=== PATIENT | female | born 1980 | race Caucasian/White ===

== ENCOUNTER 2020-01-25 15:02 | Emergency (ER) | payer OTHER, SELFPAY ==
--- NOTE | ~2020-01-25 | CT_ITS ---
EXAMINATION: CT abdomen pelvis w con INDICATION: Right lower quadrant pain and constipation TECHNIQUE: Computed tomographic images of the abdomen and pelvis were obtained after the administrati on of 100 cc of Omnipaque 350 intravenous contrast. The dose-length product (DLP) was 435.15 mGy-cm. Automated exposure control and iterative reconstruction technique were employed. COMPARISON: None available FINDINGS: The lung bases are clear. The heart size is normal. The liver, spleen, pancreas, gallbladde r, and adrenal glands are normal. The kidneys are unremarkable. No pathologically enlarged abdominal or pelvic lymph nodes are identified. There is no free intraperitoneal gas or evidence of bowel obstr uction. The appendix is normal. A moderate volume of colonic stool is present. There is mild thickeni ng of the bladder wall. IMPRESSION: 1. Mild bladder wall thickening which could reflect cystitis. 2. Constipation. Reviewed, dictated and finalized at location A.
[2020-01-25 15:20] VITALS: BP 143/85; PULSE 87; RESP 18; TEMP 36.3; O2SAT 98
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
[2020-01-25] MEDS: SODIUM CHLORIDE 0.9% IV 1,000 ML 999 ML IV CONT (15:44)
[2020-01-25] MEDS: ONDANSETRON INJ 4 MG/2 ML VIAL IV PUSH (15:45)
[2020-01-25] MEDS: HYDROMORPHONE HCL 2 MG/ML VIAL 0.5 MG IV PUSH (15:45)
[2020-01-25 15:57] LABS: Basophils Absolute Auto 0.06 K/mm3 (0.00-0.10); Basophils Percent Auto 0.9 % (0.0-1.0); Eosinophils Absolute Auto 0.18 K/mm3 (0.02-0.50); Eosinophils Percent Auto 2.7 % (1.0-6.0); Hematocrit 38.8 % (35.0-49.0); Hemoglobin 12.7 g/dL (12.0-15.0); Immature Granulocyte Absolute 0.05 K/mm3 (0.00-0.00); Immature Granulocyte Percent A 0.7 % (0.0-0.0); Lymphocytes Absolute Auto 1.56 K/mm3 (1.10-4.50); Lymphocytes Percent Auto 23.1 % (18.0-42.0); Mean Corpuscular HGB Conc 32.7 g/dL (32.0-36.0); Mean Corpuscular Hemoglobin 30.5 pg (27.0-31.0); Mean Platelet Volume 9.4 fl (9.2-11.8); Monocytes Absolute Auto 0.79 K/mm3 (0.10-0.90); Monocytes Percent Auto 11.7 % (2.0-11.0); Neutrophils Absolute Auto 4.1 K/mm3 (1.7-7.2); Neutrophils Percent Auto 60.9 % (50.0-70.0); Platelet Count Result 273 K/mm3 (150-420); Red Blood Count 4.17 M/mm3 (4.20-5.40); Red Cell Distribution Width 13.5 % (11.6-14.4); White Blood Count 6.8 K/mm3 (4.8-10.8)
[2020-01-25 16:00] LABS: Add Urine Microscopic? YES; Appearance Urine Cloudy (Clear); Bilirubin Urine Negative (Negative); Blood Urine Negative (Negative); Color Urine Yellow (Yellow); Glucose Urine UA Negative (Negative); Ketones Urine Negative (Negative); Leukocyte Esterase Ur 1+ (Negative); Nitrate Urine Negative (Negative); Protein Urine Negative (Negative); pH Urine 7.5 (5.0-8.0)
[2020-01-25 16:06] LABS: Amphetamine Screen Urine Positive (Negative); Barbiturate Screen Urine Negative (Negative); Benzodiazepines Screen Urine Negative (Negative); Cannabinoid Screen Urine Negative (Negative); Cocaine Screen Urine Negative (Negative); Methadone Screen Urine Negative (Negative); Opiate Screen Urine Negative (Negative); Phencyclidine Screen Urine Negative (Negative)
[2020-01-25 16:07] LABS: Amorphous Sediment Urine Moderate; Bacteria Urine 2+ /hpf; RBC Urine 0-2 /hpf (0-2); Squamous Epithelial Cell Urine Few /hpf (Few); WBC Urine 16-20 /hpf (0-3)
[2020-01-25 16:09] LABS: Pregnancy On Board Control Positive; Urine Pregnancy Test Negative
[2020-01-25 16:11] LABS: Partial Thromboplastin Time 30.9 SEC (22.3-31.6); Prothrombin Time 10.2 Seconds (9.64-11.0)
[2020-01-25 16:13] LABS: Alanine Aminotransferase 27 U/L (14-59); Albumin Level 3.9 g/dL (3.4-5.0); Alkaline Phosphatase 64 U/L (46-116); Anion Gap 9.2 mmol/L (7-16); Aspartate Amino Transferase 19 U/L (15-37); Bilirubin,Total 0.3 mg/dL (0.00-1.00); Blood Urea Nitrogen 13 mg/dL (7-18); Calcium 8.9 mg/dL (8.5-10.1); Carbon Dioxide 35 mmol/L (21-32); Chloride 100 mmol/L (98-108); Estimated CRCL calculation 59 ml/min; Estimated Glomerular Filt Rate > 60; Glucose 75 mg/dL (70-99); Lipase 102 U/L (73-393); Osmolality Calculated 291 mOsm/kg (285-295); Potassium 3.2 mmol/L (3.5-5.1); Sodium 141 mmol/L (136-145); Total Protein 7.8 g/dL (6.4-8.2)
[2020-01-25 16:15] LABS: Lactic Acid Reflex 0.9 mmol/L (0.4-2.0)
[2020-01-25] MEDS: CIPROFLOXACIN 500 MG TAB PO (17:36)
[2020-01-25 17:38] VITALS: BP 132/70; PULSE 72; RESP 16; O2SAT 99
--- NOTE | 2020-01-28 11:17 | PC.NURSE ---
DR WALDRON OFFICE NOTIFIED OF POSITIVE GONORRHEA, OFFICE WILL NOTIFY PATIENT PER JOAQUIN.
== END 2020-01-25 17:38 | disposition home or self-care (01) ==
PROVIDERS: Emergency Provider Emergency Medicine; PCP Family Medicine
DX: N39.0 Urinary tract infection, site not specified (principal); K59.00 Constipation, unspecified
CPT/HCPCS: 36415; 74177; 80053; 80307; 81001; 81025; 83605; 83690; 85025; 85610; 85730; 87491; 87591; 96374; 96375; 99283; 99284; A9270; J1170; J2405; J7030; Q9965

== ENCOUNTER 2020-03-09 07:17 | Emergency (ER) | payer OTHER, SELFPAY ==
[2020-03-09 07:30] VITALS: BP 117/88; PULSE 96; RESP 20; TEMP 36.8; O2SAT 98
--- NOTE | 2020-03-09 07:59 | ED.SKABFB ---
HPI - Skin/Abscess/Foreign Bdy General Chief complaint: Skin/Abscess/Foreign Body Stated complaint: left side of face swollen Source: patient Mode of arrival: ambulatory Limitations: no limitations History of Present Illness HPI narrative: 39-year-old has had a painful lesion forehead this started 1 week ago. It started draining last night which was associated with resolution of her pain. She rated the pain is 6 or 7 out 10. Two days ago she had nausea vomiting which has since resolved. She denies fevers chills headaches body aches. She is had a draining sore the left axilla this started 2 weeks ago. The drainage stopped yesterday before she has pain which has since resolved. When she denies sores elsewhere. He is unaware of any previous skin infections or MRSA. She's wondering if this could be a spider bite. Related Data Home Medications Medication Instructions Recorded Confirmed levothyroxine 150 mcg PO DAILY 10/19/19 03/09/20 Allergies Allergy/AdvReac Type Severity Reaction Status Date / Time acetaminophen [From Tylenol] Allergy Unknown Verified 03/09/20 07:40 codeine Allergy Unknown Verified 03/09/20 07:40 Review of Systems Constitutional: Constitutional: Reports no additional constitutional complaints Eyes: Comments: Left eyelid swelling last 2 days, improved today. No blurred vision ENT: Reports system reviewed and no additional complaints, except as documented Gastrointestinal: Gastrointestinal: Reports no additional gastrointestinal complaints Integumentary/Breasts: Skin/Breast: Reports system reviewed and no additional complaints, except as docu PMFSH Past Medical History Medical History Anxiety Depression Hypothyroidism Surgical History Surgical History H/O tubal ligation Family History Family History Father , father of [place] at age 73 No problems noted. Social History Social History Smoking packs per day: 0.5 Smoking cigarettes per day: 10.0 Tobacco type: cigarettes Substance use type: does not use Exam Const: Other: healthy appearing patient. Afebrile. HENMT: Head: other Face and sinus: other ( 1 cm red and tender papule, the central 7mm ulcerated .) Eyes: Eyelids: other ( left upper eyelid is edematous without erythema or tenderness) Neck: Lymphatic: no lymphadenopathy noted Chest: Other: left axilla has a light pain slightly fluctuant, minimally tender papule measuring 2 by 1 cm. The upper left axilla has a 2 cm round light pink nontender macule Course Course Emergency Course: gentle compression was applied to the left forehead lesion resulting the expression purulence drainage. Culture was obtained Vital Signs Vital signs: Vital Signs Temperature 36.8 C 03/09/20 07:30 Pulse Rate 96 03/09/20 07:30 Respiratory Rate 20 03/09/20 07:30 Blood Pressure 117/88 03/09/20 07:30 Pulse Oximetry 98 03/09/20 07:30 Temperature 36.8 C 03/09/20 07:30 Pulse Rate 96 03/09/20 07:30 Respiratory Rate 20 03/09/20 07:30 Blood Pressure 117/88 03/09/20 07:30 Pulse Oximetry 98 03/09/20 07:30 MDM - Skin/Abscess/Foreign Bdy MDM Narrative Medical decision making narrative: Patient had an abscesses of the left axilla which drain is now healing. She appears to inoculation her left forehead Differential Diagnosis Differential diagnosis: Likely abscess of skin or subcutaneous tissue Discharge Plan Discharge Clinical Impression: Abscess of skin or subcutaneous tissue Qualifiers: Site of cutaneous abscess: face Qualified Code(s): L02.01 - Cutaneous abscess of face Patient Disposition: Home, Self-Care Condition: Stable Instructions: Antibiotic Form, Abscess (ED) Additional Instructions: Keep the
== END 2020-03-09 08:21 | disposition home or self-care (01) ==
PROVIDERS: Emergency Provider Family Medicine; PCP Family Medicine
DX: F41.9 Anxiety disorder, unspecified (principal); F32.9 Major depressive disorder, single episode, unspecified; E03.9 Hypothyroidism, unspecified; L02.01 Cutaneous abscess of face; L02.412 Cutaneous abscess of left axilla
CPT/HCPCS: 87070; 87077; 87186; 87205; 99283; A9270

== ENCOUNTER 2020-03-17 16:09 | Emergency (ER) | payer OTHER, SELFPAY ==
--- NOTE | 2020-03-17 16:20 | ED.EXTPRO ---
HPI - Extremity Problem General Chief complaint: Extremity Problem,Nontraumatic Stated complaint: r ankle swelling Time Seen by Provider: 03/17/20 16:20 Source: patient and RN notes reviewed Mode of arrival: ambulatory Limitations: no limitations History of Present Illness HPI Narrative: 39-year-old female states that she has been having pain in her right calf. Seems to be closer to her Achilles tendon. She says it only hurts when she walks on it. She has no pain at rest. She denies any fever chills. She denies any redness. She thinks it might be swollen. Complaint: extremity pain and extremity swelling Onset (ago): day(s) (3) Pain Consistency: intermittent Location: right and lower extremity Severity scale (1-10): 9 Quality: aching (Only when she walks) Radiation: none Relieving factors: rest Exacerbating factors: weight bearing Associated symptoms: denies other symptoms Related Data Home Medications Medication Instructions Recorded Confirmed levothyroxine 150 mcg PO DAILY 10/19/19 03/17/20 Allergies Allergy/AdvReac Type Severity Reaction Status Date / Time codeine Allergy Unknown Verified 03/09/20 07:40 Review of Systems Review of Systems: All systems reviewed & are unremarkable except as noted in HPI and below Constitutional: Constitutional: Reports no additional constitutional complaints Eyes: Eyes: Reports no additional eye complaints Cardiovascular: Cardiovascular: Reports no additional cardiovascular complaints Respiratory: Respiratory: Reports no additional respiratory complaints Gastrointestinal: Gastrointestinal: Reports no additional gastrointestinal complaints Genitourinary: Genitourinary: Reports no additional female genitourinary complaints Musculoskeletal: Musculoskeletal: Reports as per HPI Neurologic: Reports system reviewed and no additional complaints, except as documented Psychiatric: Psychiatric: Reports no additional psychiatric complaints Hematologic/Lymphatic: Hematologic/Lymphatic: Reports no additional hematologic/lymphatic complaints COUNTS INCLUDE 234 BEDS AT THE [facility] Past Medical History Medical History Anxiety Depression Hypothyroidism Surgical History Surgical History H/O tubal ligation Family History Family History Father , father of [place] at age 73 No problems noted. Social History Social History (Updated 03/17/20 @ 16:25 by Flash Ying MD) Smoking packs per day: 1 Smoking cigarettes per day: 20.0 Tobacco type: cigarettes Substance use type: does not use Exam Const: General: healthy appearing, no acute distress and alert Nutritional Appearance: well nourished Orientation/consciousness: patient oriented x3 Other: Female nurse in room during examination. HENMT: Head: normal to inspection Ears: external ears normal Face and sinus: normal facial exam Mouth: Yes lip normal and Yes moist mucous membranes Eyes: Conjunctivae: conjunctivae normal Pupils: Equal, round and reactive pupils present EOM: EOMs intact bilaterally Neck: Neck: normal visual inspection Resp: Effort & Inspection: normal respiratory effort Auscultation: clear to auscultation bilaterally Cardio: Rate: regular rate Rhythm: regular rhythm GI: GI Palp: Yes Soft to palpation and No Tenderness to palpation present (GI) Auscultation: normal bowel sounds Back/Spine/Pelvis: Cervical Spine: cervical ROM normal Thoracic/Lumbar Spine: thoraco-lumbar ROM normal Skin: General skin exam: normal color Rashes: no rashes Neuro: General: patient oriented x3, moves all extremities and no focal motor deficits Speech: normal speech Gait exam (Neuro): Normal gait present Extrem: General: no pedal edema Right lower extremity: full ROM, lower leg Details: normal to inspection, tenderness Location: of the posterior calf (Mil
[2020-03-17 16:43] VITALS: BP 117/74; PULSE 73; RESP 16; TEMP 36.6; O2SAT 100
[2020-03-17 16:45] LABS: Basophils Absolute Auto 0.09 K/mm3 (0.00-0.10); Basophils Percent Auto 1.3 % (0.0-1.0); Eosinophils Absolute Auto 0.26 K/mm3 (0.02-0.50); Eosinophils Percent Auto 3.9 % (1.0-6.0); Hematocrit 36.7 % (35.0-49.0); Immature Granulocyte Absolute 0.04 K/mm3 (0.00-0.00); Immature Granulocyte Percent A 0.6 % (0.0-0.0); Lymphocytes Percent Auto 28.3 % (18.0-42.0); Mean Corpuscular HGB Conc 32.7 g/dL (32.0-36.0); Mean Corpuscular Hemoglobin 31.3 pg (27.0-31.0); Mean Corpuscular Volume 95.6 fL (78.0-102.0); Mean Platelet Volume 9.6 fl (9.2-11.8); Monocytes Absolute Auto 0.49 K/mm3 (0.10-0.90); Monocytes Percent Auto 7.3 % (2.0-11.0); Neutrophils Absolute Auto 3.9 K/mm3 (1.7-7.2); Neutrophils Percent Auto 58.6 % (50.0-70.0); Platelet Count Result 270 K/mm3 (150-420); Red Blood Count 3.84 M/mm3 (4.20-5.40); Red Cell Distribution Width 13.8 % (11.6-14.4); White Blood Count 6.7 K/mm3 (4.8-10.8)
[2020-03-17 16:56] LABS: Anion Gap 9.8 mmol/L (7-16); Blood Urea Nitrogen 10 mg/dL (7-18); Calcium 8.7 mg/dL (8.5-10.1); Carbon Dioxide 29 mmol/L (21-32); Chloride 102 mmol/L (98-108); Estimated Glomerular Filt Rate 49; Glucose 98 mg/dL (70-99); Osmolality Calculated 283 mOsm/kg (285-295); Potassium 3.8 mmol/L (3.5-5.1); Sodium 137 mmol/L (136-145)
[2020-03-17 17:02] LABS: D Dimer 0.19 mg/L (0.19-0.50)
[2020-03-17 17:19] VITALS: RESP 17
== END 2020-03-17 17:22 | disposition home or self-care (01) ==
PROVIDERS: Emergency Provider Emergency Medicine; PCP Family Medicine
DX: M79.18 Myalgia, other site (principal)
CPT/HCPCS: 36415; 80048; 85025; 85380; 99283

== ENCOUNTER 2020-03-31 14:22 | Emergency (ER) | payer OTHER, SELFPAY ==
[2020-03-31 14:30] VITALS: BP 104/67; PULSE 82; RESP 16; TEMP 36.4; O2SAT 99
[2020-03-31 15:17] LABS: Beta HCG Quantitative < 1.00 mIU/mL (0-6)
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
[2020-03-31 15:33] VITALS: RESP 16
== END 2020-03-31 15:35 | disposition home or self-care (01) ==
PROVIDERS: Emergency Provider Emergency Medicine; PCP Family Medicine
DX: Z00.00 Encounter for general adult medical examination without abnormal findings (principal)
CPT/HCPCS: 36415; 84702; 99281; 99283

== ENCOUNTER 2020-05-06 16:44 | Emergency (ER) | payer OTHER, SELFPAY ==
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
[2020-05-06 16:50] VITALS: BP 109/75; PULSE 81; RESP 16; TEMP 36.4; O2SAT 99
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
[2020-05-06] MEDS: MORPHINE SULFATE 2 MG/ML INJ IV PUSH ×2 (17:00→17:51)
[2020-05-06] MEDS: ONDANSETRON INJ 4 MG/2 ML VIAL IV PUSH (17:15)
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
[2020-05-06 18:43] LABS: Pregnancy On Board Control Positive; Urine Pregnancy Test Negative
[2020-05-06 19:14] VITALS: BP 100/79
== END 2020-05-06 19:15 | disposition home or self-care (01) ==
PROVIDERS: Emergency Provider Emergency Medicine
DX: S82.401A Unspecified fracture of shaft of right fibula, initial encounter for closed fracture (principal); Y04.0XXA Assault by unarmed brawl or fight, initial encounter
CPT/HCPCS: 29515; 73610; 73630; 81025; 96374; 96375; 96376; 99283; 99284; J2270; J2405

== ENCOUNTER 2020-09-14 12:51 | Emergency (ER) | payer OTHER, SELFPAY ==
--- NOTE | ~2020-09-14 | XR_ITS ---
XR knee RT 3V 09/14/2020 13:39 INDICATION: Right knee pain after fall PROCEDURE: 4 views right knee COMPARISON: No prior studies for comparison. FINDINGS: Fracture, dislocation or subluxation is not identified. The soft tissues appear within norm al limits. No foreign bodies are identified. IMPRESSION: 1: NO ACUTE BONE OR JOINT ABNORMALITY IDENTIFIED. 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
--- NOTE | ~2020-09-14 | XR_ITS ---
XR ankle RT min 3V 09/14/2020 13:38 Indication: Status post fall. Reinjured right ankle. Procedure: 4 views right ankle Comparison: 05/06/2020 Findings: There is a healing oblique distal fibular fracture with developing callus formation. There is widening of the medial ankle mortise, unchanged from prior study. Moderate diffuse soft tiss ue swelling. 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 Impression: 1: Healing oblique distal fibular fracture with developing callus formation. 2: Persistent unchanged widening of the medial ankle mortise, consistent with ligamentous injury. 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 2: Persistent unchanged widening of the medial ankle mortise, consistent with l igamentous injury.
[2020-09-14 13:05] VITALS: BP 103/67; PULSE 82; RESP 14; TEMP 36.4; O2SAT 100
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
[2020-09-14] MEDS: LIDOCAINE HCL 1% LOCAL INJ 20 ML VIAL (13:33)
[2020-09-14] MEDS: cefTRIAXone 1 GM VIAL IM (13:33)
[2020-09-14] MEDS: NEOMYCIN/POLYMYXIN/BACITRACIN OINTMENT 15 GM TUBE 1 APPLIC TOPICAL (13:40)
--- NOTE | 2020-09-14 13:46 | PC.NURSE ---
ABRASION TO RIGHT KNEE CLEANED, ROSALINO, DRESSED
[2020-09-14 14:34] VITALS: BP 99/56; PULSE 70; RESP 14; TEMP 36.6; O2SAT 100
== END 2020-09-14 14:36 | disposition home or self-care (01) ==
PROVIDERS: Emergency Provider Family Medicine; PCP Family Medicine
DX: M24.271 Disorder of ligament, right ankle (principal); S80.211A Abrasion, right knee, initial encounter; S82.891G Other fracture of right lower leg, subsequent encounter for closed fracture with delayed healing; W01.0XXA Fall on same level from slipping, tripping and stumbling without subsequent striking against object, initial encounter
CPT/HCPCS: 73562; 73610; 96372; 99283; 99284; A9270; J0696; L2112

== ENCOUNTER 2021-01-24 13:37 | Emergency (ER) | payer OTHER, SELFPAY ==
--- NOTE | ~2021-01-24 | XR_ITS ---
XR ankle RT min 3V DATE: 01/24/2021 14:44 INDICATION: Pain TECHNIQUE: 4 views COMPARISON: 09/14/2020 right ankle FINDINGS: There is medial and lateral ankle soft tissue swelling. There is old fracture deformity of the lateral malleolus. There is probable chronic old fracture deformity of the distal lateral tibial epiphyseal area, with r esultant chronic lateral subluxation and angulation deformity at the tibiotalar joint. IMPRESSION: Chronic fracture deformities of the lateral malleolus and distal lateral tibial epiphysea l area, with chronic lateral subluxation and angulation deformity at the tibiotalar joint Reviewed, dictated and finalized at location A. IMPRESSION: Chronic fracture deformities of the lateral malleolus and distal la teral tibial epiphyseal area, with chronic lateral subluxation and angulation d eformity at the tibiotalar joint
[2021-01-24 13:45] VITALS: BP 141/80; PULSE 83; RESP 20; O2SAT 97
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
[2021-01-24 15:32] VITALS: RESP 16
== END 2021-01-24 15:40 | disposition home or self-care (01) ==
PROVIDERS: Emergency Provider Emergency Medicine; PCP Family Medicine
DX: M25.571 Pain in right ankle and joints of right foot (principal); E03.9 Hypothyroidism, unspecified
CPT/HCPCS: 73610; 99282; 99283

== ENCOUNTER 2021-01-25 10:41 | Emergency (ER) | payer OTHER, SELFPAY ==
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
[2021-01-25 11:10] VITALS: BP 126/95; PULSE 72; RESP 20; TEMP 36.8; O2SAT 100
[2021-01-25] MEDS: MECLIZINE HCL 25 MG TABLET PO (11:40)
[2021-01-25 11:41] LABS: Basophils Absolute Auto 0.07 K/mm3 (0.00-0.10); Basophils Percent Auto 1.1 % (0.0-1.0); Eosinophils Absolute Auto 0.25 K/mm3 (0.02-0.50); Eosinophils Percent Auto 3.9 % (1.0-6.0); Hematocrit 40.8 % (35.0-49.0); Hemoglobin 13.1 g/dL (12.0-15.0); Immature Granulocyte Absolute 0.02 K/mm3 (0.00-0.00); Immature Granulocyte Percent A 0.3 % (0.0-0.0); Lymphocytes Absolute Auto 1.28 K/mm3 (1.10-4.50); Lymphocytes Percent Auto 19.8 % (18.0-42.0); Mean Corpuscular HGB Conc 32.1 g/dL (32.0-36.0); Mean Corpuscular Hemoglobin 29.9 pg (27.0-31.0); Mean Corpuscular Volume 93.2 fL (78.0-102.0); Mean Platelet Volume 9.6 fl (9.2-11.8); Monocytes Absolute Auto 0.56 K/mm3 (0.10-0.90); Monocytes Percent Auto 8.6 % (2.0-11.0); Neutrophils Absolute Auto 4.3 K/mm3 (1.7-7.2); Neutrophils Percent Auto 66.3 % (50.0-70.0); Platelet Count Result 214 K/mm3 (150-420); Red Blood Count 4.38 M/mm3 (4.20-5.40); Red Cell Distribution Width 13.2 % (11.6-14.4); White Blood Count 6.5 K/mm3 (4.8-10.8)
[2021-01-25 11:47] LABS: Add Urine Microscopic? YES; Appearance Urine Clear (Clear); Bilirubin Urine Negative (Negative); Blood Urine 3+ (Negative); Color Urine Yellow (Yellow); Glucose Urine UA Negative (Negative); Ketones Urine Negative (Negative); Leukocyte Esterase Ur 2+ LEU/UL (Negative); Nitrate Urine Negative (Negative); Protein Urine Negative (Negative); Urobilinogen Urine 0.2 mg/dL (0.2-1.0); pH Urine 6.5 (5.0-8.0)
[2021-01-25 11:52] LABS: Urine Pregnancy Test Negative
[2021-01-25 11:53] LABS: Pregnancy On Board Control Positive
[2021-01-25 11:55] LABS: Bacteria Urine 1+ /hpf; Squamous Epithelial Cell Urine Few /hpf (Few)
[2021-01-25 11:57] LABS: Alanine Aminotransferase 44 U/L (14-59); Anion Gap 6 mmol/L (8-16); Aspartate Amino Transferase 36 U/L (15-37); Bilirubin,Total 0.4 mg/dL (0.00-1.00); Blood Urea Nitrogen 11 mg/dL (7-18); Calcium 8.8 mg/dL (8.5-10.1); Carbon Dioxide 31 mmol/L (21-32); Chloride 101 mmol/L (98-108); Estimated Glomerular Filt Rate 45; Glucose 73 mg/dL (70-99); Osmolality Calculated 284 mOsm/kg (285-295); Potassium 3.7 mmol/L (3.5-5.1); Sodium 138 mmol/L (136-145); Total Protein 7.2 g/dL (6.4-8.2)
[2021-01-25 11:58] LABS: Albumin Level 3.6 g/dL (3.4-5.0); Alkaline Phosphatase 61 U/L (46-116)
[2021-01-25 12:03] LABS: CRP < 0.9 mg/dL (0.0-0.9)
[2021-01-25 12:15] VITALS: RESP 18
[2021-01-25 12:15] LABS: Amphetamine Screen Urine Positive (Negative); Barbiturate Screen Urine Negative (Negative); Benzodiazepines Screen Urine Negative (Negative); Cannabinoid Screen Urine Negative (Negative); Cocaine Screen Urine Negative (Negative); Methadone Screen Urine Negative (Negative); Opiate Screen Urine Negative (Negative); Phencyclidine Screen Urine Negative (Negative)
== END 2021-01-25 12:15 | disposition home or self-care (01) ==
PROVIDERS: Emergency Provider Emergency Medicine; PCP Family Medicine
DX: N39.0 Urinary tract infection, site not specified (principal)
CPT/HCPCS: 36415; 80053; 80307; 81001; 81025; 85025; 86140; 87086; 99283; A9270

== ENCOUNTER 2021-03-29 09:12 | Emergency (ER) | payer OTHER, SELFPAY ==
[2021-03-29 09:12] VITALS: BP 105/80; PULSE 70; RESP 20; TEMP 36.6; O2SAT 100
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
--- NOTE | 2021-03-29 09:21 | ECG_ITS ---
Measurements Intervals [place] Rate: 56 P: 58 IA: 164 QRS: 85 QRSD: 116 T: 71 QT: 419 QTc: 407 Interpretive Statements SINUS BRADYCARDIA INCOMPLETE RIGHT BUNDLE BRANCH BLOCK BORDERLINE ECG Electronically Signed On 03-29-2021 12:28:21 CDT by Lefty Boyd D.O.
[2021-03-29] MEDS: SODIUM CHLORIDE 0.9% IV 1,000 ML 999 ML IV CONT (09:34)
[2021-03-29] MEDS: ONDANSETRON INJ 4 MG/2 ML VIAL IV PUSH (09:35)
[2021-03-29 09:41] LABS: Basophils Absolute Auto 0.07 K/mm3 (0.00-0.10); Basophils Percent Auto 1.5 % (0.0-1.0); Eosinophils Absolute Auto 0.29 K/mm3 (0.02-0.50); Eosinophils Percent Auto 6.1 % (1.0-6.0); Hematocrit 34.2 % (35.0-49.0); Hemoglobin 10.9 g/dL (12.0-15.0); Immature Granulocyte Absolute 0.02 K/mm3 (0.00-0.00); Immature Granulocyte Percent A 0.4 % (0.0-0.0); Lymphocytes Absolute Auto 1.14 K/mm3 (1.10-4.50); Lymphocytes Percent Auto 23.9 % (18.0-42.0); Mean Corpuscular HGB Conc 31.9 g/dL (32.0-36.0); Mean Corpuscular Hemoglobin 30.4 pg (27.0-31.0); Mean Corpuscular Volume 95.3 fL (78.0-102.0); Mean Platelet Volume 9.6 fl (9.2-11.8); Monocytes Absolute Auto 0.55 K/mm3 (0.10-0.90); Monocytes Percent Auto 11.6 % (2.0-11.0); Neutrophils Absolute Auto 2.7 K/mm3 (1.7-7.2); Neutrophils Percent Auto 56.5 % (50.0-70.0); Platelet Count Result 242 K/mm3 (150-420); Red Blood Count 3.59 M/mm3 (4.20-5.40); Red Cell Distribution Width 14.1 % (11.6-14.4); White Blood Count 4.8 K/mm3 (4.8-10.8)
[2021-03-29 10:01] LABS: Lactic Acid Reflex 1.4 mmol/L (0.4-2.0)
[2021-03-29 10:03] LABS: Add Urine Microscopic? YES; Appearance Urine Cloudy (Clear); Bilirubin Urine Negative (Negative); Blood Urine 3+ (Negative); Color Urine Red (Yellow); Glucose Urine UA Negative (Negative); Ketones Urine Negative (Negative); Leukocyte Esterase Ur Negative LEU/UL (Negative); Nitrate Urine Negative (Negative); Protein Urine 1+ (Negative); Specific Grav Ur 1.025 (1.010-1.020); Urobilinogen Urine 0.2 mg/dL (0.2-1.0); pH Urine 5.5 (5.0-8.0)
[2021-03-29 10:07] LABS: Bacteria Urine Trace /hpf; RBC Urine >75 /hpf (0-2); Squamous Epithelial Cell Urine Rare /hpf (Few); WBC Urine None seen /hpf (0-3)
[2021-03-29 10:09] LABS: Amphetamine Screen Urine Positive (Negative); Barbiturate Screen Urine Negative (Negative); Benzodiazepines Screen Urine Negative (Negative); Cannabinoid Screen Urine Negative (Negative); Cocaine Screen Urine Negative (Negative); Methadone Screen Urine Negative (Negative); Opiate Screen Urine Negative (Negative); Phencyclidine Screen Urine Negative (Negative)
[2021-03-29 10:10] LABS: Alanine Aminotransferase 21 U/L (14-59); Albumin Level 3.1 g/dL (3.4-5.0); Alkaline Phosphatase 53 U/L (46-116); Anion Gap 10 mmol/L (8-16); Aspartate Amino Transferase 32 U/L (15-37); Bilirubin,Total 0.2 mg/dL (0.00-1.00); Blood Urea Nitrogen 8 mg/dL (7-18); Calcium 8.7 mg/dL (8.5-10.1); Carbon Dioxide 25 mmol/L (21-32); Chloride 105 mmol/L (98-108); Estimated Glomerular Filt Rate > 60; Glucose 100 mg/dL (70-99); Lipase 136 U/L (73-393); Osmolality Calculated 288 mOsm/kg (285-295); Potassium 3.7 mmol/L (3.5-5.1); Sodium 140 mmol/L (136-145); Total Protein 6.1 g/dL (6.4-8.2)
[2021-03-29 10:11] LABS: Thyroid Stimulating Hormone Reflex 80.47 u/IU/mL (0.36-3.74)
[2021-03-29 10:24] VITALS: BP 110/64; PULSE 67; RESP 20; TEMP 37.1; O2SAT 100
[2021-03-29 10:27] LABS: Pregnancy On Board Control Positive; Urine Pregnancy Test Negative
[2021-03-29 10:28] LABS: Free T4 Free Thyroxine Reflex 0.14 ng/dL (0.76-1.46)
== END 2021-03-29 10:33 | disposition home or self-care (01) ==
PROVIDERS: Emergency Provider Emergency Medicine
DX: K52.9 Noninfective gastroenteritis and colitis, unspecified (principal); E03.9 Hypothyroidism, unspecified
CPT/HCPCS: 36415; 80053; 80307; 81001; 81025; 83605; 83690; 84439; 84443; 85025; 93005; 96361; 96374; 99284; J2405; J7030

== ENCOUNTER 2022-03-18 08:05 | Emergency (ER) | payer OTHER, SELFPAY ==
--- NOTE | ~2022-03-18 | XR_ITS ---
EXAMINATION: XR knee LT 3V DATE: 03/18/2022 09:26 INDICATION: Left knee infrapatellar injury. TECHNIQUE: 3 views of left knee were obtained. COMPARISON: None. FINDINGS: Bone alignment is normal. No fracture. Joint spaces are well maintained. There is no knee j oint effusion. IMPRESSION: 1. No fracture or radiopaque foreign body. Reviewed, dictated and finalized at location A.
--- NOTE | ~2022-03-18 | CT_ITS ---
EXAMINATION: CT brain wo con DATE: 03/18/2022 09:15 INDICATION: Headache. TECHNIQUE: Computed tomography (CT) of the head was performed without intravenous contrast. The mA wa s adjusted according to patient size. Iterative reconstruction technique was employed. The dose-lengt h product was 605.33 mGy-cm. COMPARISON: Head CT 05/06/2019 FINDINGS: There is no intracranial hemorrhage, acute infarction, or abnormal intracranial mass lesion . The ventricles are normal in size. The orbits are normal. There is mild mucosal thickening in the ethmoid sinuses. 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 There are small s crews in this area. The mastoid air cells are normal. IMPRESSION: 1. Normal brain. Reviewed, dictated and finalized at location A. IMPRESSION: 1. Normal brain.
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
[2022-03-18 08:17] VITALS: BP 102/83; PULSE 101; RESP 18; TEMP 36.1; O2SAT 98
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
--- NOTE | 2022-03-18 09:06 | PC.NURSE ---
Pt off floor to radiology.
[2022-03-18 09:31] VITALS: BP 104/75; PULSE 76; RESP 18; O2SAT 97
--- NOTE | 2022-03-18 09:47 | PC.NURSE ---
Pt refusing toradol injection, MD aware. Changing to PO alternative
--- NOTE | 2022-03-18 09:52 | PC.NURSE ---
Called pharmacy for Voltaren PO
[2022-03-18] MEDS: DICLOFENAC SOD 75 MG TABLET.EC PO (09:57)
[2022-03-18 10:02] VITALS: BP 105/69; PULSE 79; RESP 16; TEMP 36.5; O2SAT 100
== END 2022-03-18 10:05 | disposition home or self-care (01) ==
PROVIDERS: Emergency Provider Internal Medicine Critical Care Medicine; PCP Nurse Practitioner Family
DX: R51.9 Headache, unspecified (principal); S12.110A Anterior displaced Type II dens fracture, initial encounter for closed fracture; S81.012A Laceration without foreign body, left knee, initial encounter
CPT/HCPCS: 70450; 72125; 73562; 99284; A9270

== ENCOUNTER 2023-02-18 13:25 | Emergency (ER) | payer OTHER, SELFPAY ==
[2023-02-18 13:27] VITALS: BP 128/89; PULSE 95; RESP 18; TEMP 36.3; O2SAT 97
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
--- NOTE | 2023-02-18 13:48 | PC.NURSE ---
[id number] YIN FOR PT ASSESSMENT
[2023-02-18] MEDS: KETOROLAC 30 MG/ML VIAL (*BKC) IM (14:00)
[2023-02-18 14:24] VITALS: BP 103/82; PULSE 62; RESP 16; TEMP 36.3; O2SAT 96
== END 2023-02-18 14:23 | disposition home or self-care (01) ==
PROVIDERS: Emergency Provider Emergency Medicine
DX: S16.1XXA Strain of muscle, fascia and tendon at neck level, initial encounter (principal); E03.9 Hypothyroidism, unspecified; F17.210 Nicotine dependence, cigarettes, uncomplicated; X58.XXXA Exposure to other specified factors, initial encounter
CPT/HCPCS: 96372; 99283; J1885

== ENCOUNTER 2023-06-07 11:11 | Outpatient (CLI) | payer OTHER, SELFPAY ==
--- NOTE | ~2023-06-07 | XR_ITS ---
Thoracic spine: Clinical Indication: Back pain AP and lateral views were performed. No fracture is seen. There is normal alignment of the vertebrae. The intervertebral disc spaces appe ar normal. Paravertebral soft tissues appear normal. Impression: No significant abnormalities noted. Reviewed, dictated and finalized at [facility]. Impression: No significant abnormalities noted.
--- NOTE | ~2023-06-07 | XR_ITS ---
Lumbosacral Spine: AP and lateral views Clinical History: Pain Findings: There are 6 lumbar type vertebral bodies. The normal lordotic curve is maintained. The yudi tebral bodies and posterior elements are intact. The intervertebral disc spaces are preserved. The sacroiliac joints are normally outlined. Impression: Probable 6 lumbar type vertebral bodies, otherwise no significant findings. Reviewed, dictated and finalized at [facility]. Impression: Probable 6 lumbar type vertebral bodies, otherwise no significant findings.
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
--- NOTE | ~2023-06-07 | XR_ITS ---
Cervical Spine: AP, lateral, oblique, open-mouth views Clinical History: Pain Findings: The normal lordotic curve is maintained. No fracture or subluxation identified. There is mi ld degenerative disc change at C4-C5. Pre-vertebral soft tissues are unremarkable. Impression: Mild degenerative disc change at C4-C5. Reviewed, dictated and finalized at [facility]. Impression: Mild degenerative disc change at C4-C5.
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
[2023-06-07 11:35] LABS: Basophils Absolute Auto 0.09 K/mm3 (0.00-0.10); Basophils Percent Auto 1.7 % (0.0-1.0); Eosinophils Absolute Auto 0.22 K/mm3 (0.02-0.50); Eosinophils Percent Auto 4.2 % (1.0-6.0); Hematocrit 36.1 % (35.0-49.0); Hemoglobin 11.6 g/dL (12.0-15.0); Immature Granulocyte Absolute 0.01 K/mm3 (0.00-0.00); Immature Granulocyte Percent A 0.2 % (0.0-0.0); Lymphocytes Absolute Auto 1.41 K/mm3 (1.10-4.50); Lymphocytes Percent Auto 26.9 % (18.0-42.0); Mean Corpuscular HGB Conc 32.1 g/dL (32.0-36.0); Mean Corpuscular Hemoglobin 30.4 pg (27.0-31.0); Mean Corpuscular Volume 94.8 fL (78.0-102.0); Mean Platelet Volume 9.9 fl (9.2-11.8); Monocytes Absolute Auto 0.52 K/mm3 (0.10-0.90); Monocytes Percent Auto 9.9 % (2.0-11.0); Neutrophils Percent Auto 57.1 % (50.0-70.0); Platelet Count Result 286 K/mm3 (150-420); Red Blood Count 3.81 M/mm3 (4.20-5.40); Red Cell Distribution Width 14.4 % (11.6-14.4); White Blood Count 5.3 K/mm3 (4.8-10.8)
[2023-06-07 12:10] LABS: HIV 1 P24 AG Negative (Negative); HIV 1/2 AB Negative (Negative)
[2023-06-07 12:20] LABS: Anion Gap 9 mmol/L (8-16); Blood Urea Nitrogen 9 mg/dL (7-18); Carbon Dioxide 27 mmol/L (21-32); Chloride 103 mmol/L (98-108); Estimated Glomerular Filt Rate > 60; Glucose 88 mg/dL (70-99); Potassium 4.2 mmol/L (3.5-5.1); Sodium 139 mmol/L (136-145)
[2023-06-07 12:21] LABS: Alanine Aminotransferase 15 U/L (14-59); Albumin Level 4.2 g/dL (3.4-5.0); Alkaline Phosphatase 61 U/L (46-116); Aspartate Amino Transferase 20 U/L (15-37); Bilirubin,Total 0.4 mg/dL (0.00-1.00); Calcium 8.9 mg/dL (8.5-10.1); Free T4 Free Thyroxine 0.36 ng/dL (0.76-1.46); Osmolality Calculated 285 mOsm/kg (285-295); Thyroid Stimulating Hormone 70.15 uIU/mL (0.36-3.74); Total Protein 7.2 g/dL (6.4-8.2)
[2023-06-07 16:30] LABS: Iron 44 ug/dL (50-170); Percent Iron Saturation 13 % (12-57)
[2023-06-08 08:04] LABS: Trichomonas Vag PCR NOT DETECTED (NOT DETECTE)
[2023-06-08 08:29] LABS: Chlamydia trachomatis NOT DETECTED (NOT DETECTE); Neisseria gonorrhoeae PCR NOT DETECTED (NOT DETECTE)
[2023-06-10 16:51] LABS: RPR Screen Non-Reactive (Non-Reactive)
== END 2023-06-07 11:12 | disposition home or self-care (01) ==
LOC: CHSLAB 11:14
PROVIDERS: PCP Family Medicine; Visit Provider Family Medicine
DX: D69.6 Thrombocytopenia, unspecified (principal); Z72.51 High risk heterosexual behavior; E03.8 Other specified hypothyroidism; M54.2 Cervicalgia; S82.401G Unspecified fracture of shaft of right fibula, subsequent encounter for closed fracture with delayed healing; M54.9 Dorsalgia, unspecified; D64.9 Anemia, unspecified
CPT/HCPCS: 36415; 72050; 72072; 72100; 73590; 73610; 80053; 83540; 83550; 84439; 84443; 85025; 86592; 87491; 87591; 87661; 87806

== ENCOUNTER 2024-03-31 16:17 | Emergency (ER) | payer OTHER, SELFPAY ==
[2024-03-31 16:17] VITALS: BP 125/83; PULSE 85; RESP 12; TEMP 36.4; O2SAT 97
[2024-03-31 16:30] VITALS: BP 113/80; PULSE 84; RESP 17; O2SAT 96
[2024-03-31 17:00] VITALS: BP 102/83; PULSE 78; RESP 17; O2SAT 96
--- NOTE | 2024-03-31 17:00 | PC.NURSE ---
Patient ambulatory to bathroom with steady gait and back, Urine taken to lab.
[2024-03-31 17:12] LABS: Basophils Absolute Auto 0.08 K/mm3 (0.00-0.10); Basophils Percent Auto 1.3 % (0.0-1.0); Eosinophils Absolute Auto 0.24 K/mm3 (0.02-0.50); Eosinophils Percent Auto 3.8 % (1.0-6.0); Hematocrit 36.7 % (35.0-49.0); Immature Granulocyte Absolute 0.05 K/mm3 (0.00-0.00); Immature Granulocyte Percent A 0.8 % (0.0-0.0); Lymphocytes Absolute Auto 1.64 K/mm3 (1.10-4.50); Lymphocytes Percent Auto 25.8 % (18.0-42.0); Mean Corpuscular HGB Conc 32.7 g/dL (32-36); Mean Corpuscular Hemoglobin 29.9 pg (27.0-31.0); Mean Corpuscular Volume 91.5 fL (78.0-102.0); Mean Platelet Volume 9.8 fl (9.2-11.8); Monocytes Absolute Auto 0.56 K/mm3 (0.10-0.90); Monocytes Percent Auto 8.8 % (2.0-11.0); Neutrophils Absolute Auto 3.78 K/mm3 (1.70-7.20); Neutrophils Percent Auto 59.5 % (50.0-70.0); Platelet Count Result 240 K/mm3 (150-420); Red Blood Count 4.01 M/mm3 (4.20-5.40); Red Cell Distribution Width 14.8 % (11.6-14.4); White Blood Count 6.4 K/mm3 (4.8-10.8)
[2024-03-31 17:29] LABS: Pregnancy On Board Control Positive; Urine Pregnancy Test Negative
[2024-03-31 17:30] VITALS: BP 114/85; PULSE 75; RESP 18; O2SAT 97
[2024-03-31 17:37] LABS: Alanine Aminotransferase 50 U/L (14-59); Albumin Level 3.6 g/dL (3.4-5.0); Alkaline Phosphatase 44 U/L (46-116); Anion Gap 5 mmol/L (4-12); Aspartate Amino Transferase 40 U/L (15-37); Bilirubin,Total 0.3 mg/dL (0.00-1.00); Blood Urea Nitrogen 16 mg/dL (7-18); Calcium 8.7 mg/dL (8.5-10.1); Carbon Dioxide 31 mmol/L (21-32); Chloride 101 mmol/L (98-108); Estimated CRCL calculation 59 ml/min; Estimated Glomerular Filt Rate 48; Glucose 105 mg/dL (70-99); Osmolality Calculated 285 mOsm/kg (285-295); Potassium 3.8 mmol/L (3.5-5.1); Sodium 137 mmol/L (136-145); Total Protein 7.1 g/dL (6.4-8.2)
[2024-03-31 17:44] LABS: CRP < 0.5 mg/dL (0.0-0.9); Thyroid Stimulating Hormone > 96.00 uIU/mL (0.36-3.74)
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
[2024-03-31 18:00] VITALS: BP 112/76; PULSE 67; RESP 17; O2SAT 99
[2024-03-31 18:01] LABS: Lactic Acid Reflex 0.5 mmol/L (0.4-2.0)
[2024-03-31] MEDS: LEVOTHYROXINE SODIUM 100 MCG, LEVOTHYROXINE SODIUM 50 MCG 150 MCG PO (18:18)
[2024-03-31 18:24] VITALS: BP 112/90; PULSE 76; RESP 17; TEMP 36.6; O2SAT 97
== END 2024-03-31 18:24 | disposition home or self-care (01) ==
PROVIDERS: Emergency Provider Emergency Medicine; PCP Family Medicine
DX: E03.9 Hypothyroidism, unspecified (principal); Z87.891 Personal history of nicotine dependence
CPT/HCPCS: 36415; 80053; 81025; 83605; 84443; 85025; 86140; 99283; A9270

== ENCOUNTER 2024-08-24 13:13 | Emergency (ER) | payer OTHER, SELFPAY ==
--- NOTE | ~2024-08-24 | XR_ITS ---
EXAMINATION: XR chest 1V portable DATE: 08/24/2024 13:27 INDICATION: Cough. Nausea. TECHNIQUE: A single frontal view of the chest was obtained. COMPARISON: Chest 2 views 10/19/2019 FINDINGS: There is no pneumonia, pleural effusion, or pneumothorax. The heart size is normal. IMPRESSION: 1. No acute cardiopulmonary disease. Reviewed, dictated and finalized at location A. [employer]
[2024-08-24 13:13] VITALS: BP 115/92; PULSE 100; RESP 18; TEMP 36.1; O2SAT 96
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
[2024-08-24] MEDS: ACETAMINOPHEN 325 MG TABLET 650 MG PO (13:26)
[2024-08-24] MEDS: IBUPROFEN 600 MG TABLET PO (13:27)
[2024-08-24 13:30] VITALS: BP 106/81
[2024-08-24 13:51] LABS: Strep Group A RT-PCR NOT DETECTED (Negative)
[2024-08-24 14:00] VITALS: BP 107/86; PULSE 84; RESP 18; O2SAT 100
[2024-08-24 14:01] LABS: SARS-CoV-2 RNA PCR Negative (Negative)
[2024-08-24 14:02] LABS: Influenza A QL RT-PCR Negative (Negative); Influenza B QL RT-PCR Negative (Negative); RSV RNA, RT-PCR Negative (Negative)
== END 2024-08-24 14:10 | disposition home or self-care (01) ==
PROVIDERS: Emergency Provider Emergency Medicine; PCP Family Medicine
DX: J06.9 Acute upper respiratory infection, unspecified (principal); B97.89 Other viral agents as the cause of diseases classified elsewhere; J40 Bronchitis, not specified as acute or chronic; E03.9 Hypothyroidism, unspecified; F17.210 Nicotine dependence, cigarettes, uncomplicated; Z20.822 Contact with and (suspected) exposure to COVID-19
CPT/HCPCS: 71045; 87637; 87651; 99283; A9270

== ENCOUNTER 2024-11-12 09:37 | Emergency (ER) | payer OTHER, SELFPAY ==
--- NOTE | ~2024-11-12 | XR_ITS ---
CHEST RADIOGRAPH CLINICAL HISTORY: Shortness of breath bilateral hand swelling . COMPARISON: 08/24/2024 TECHNIQUE: Single portable view of the chest. FINDINGS The cardiomediastinal silhouette is unremarkable. Increased interstitial markings are identified bilaterally, findings suggesting mild pulmonary vascul ar congestion. The remainder of the lungs are clear. IMPRESSION: Mild pulmonary vascular congestion, without focal infiltrate or effusion. Reviewed, dictated and finalized at location A. T MAIL CLERK
--- NOTE | ~2024-11-12 | US_ITS ---
EXAMINATION: US venous doppler [facility] DATE: 11/12/2024 10:36 INDICATION: Lower limb swelling. TECHNIQUE: Grayscale ultrasound images without and with compression and Doppler ultrasound images of the bilateral lower extremity veins were obtained. COMPARISON: None. FINDINGS: The visualized portions of right common femoral vein, profunda (deep) femoral vein, femoral vein, pop liteal vein, peroneal veins, posterior tibial veins, and greater saphenous vein outflow are patent. The visualized portions of left common femoral vein, profunda femoral vein, femoral vein, popliteal v ein, peroneal veins, posterior tibial veins, and greater saphenous vein outflow are patent. IMPRESSION: 1. No deep venous thrombosis. Reviewed, dictated and finalized at location A. CONSULTANT
[2024-11-12 09:37] VITALS: BP 121/84; PULSE 100; RESP 16; TEMP 36.4; O2SAT 98
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
--- NOTE | 2024-11-12 10:11 | ECG_ITS ---
Test Date: 2024-11-12 10:59:16 Measurements Intervals [place] Rate: 78 P: 53 [place]: 183 QRS: 107 QRSD: 120 T: 43 QT: 405 QTc: 463 Interpretive Statements SINUS RHYTHM RIGHT AXIS DEVIATION INCOMPLETE RIGHT BUNDLE BRANCH BLOCK BASELINE WANDER- I, II BORDERLINE ECG No previous ECG available for comparison Electronically Signed On 11-12-2024 11:01:41 PONY EDGER by Lefty Boyd D.O.
--- OUTSIDE RECORDS SUMMARY | 2024-11-12 10:11 | XMS_ITS | Clinical Summary ---
Author Organization [facility] Address [address] [place] [address]. [place], [place] [address] [place] [address] Care Team Providers Care Plate Drying Machine Tender Name Role Phone Delbert Abreu MD Primary Care Provider [phone] Allergies Active Allergy Reactions Criticality Noted Date Comments Codeine Unknown 05/14/2020 Medications levothyroxine 175 MCG tablet Take 175 mcg by mouth every morning. Active Family History Medical History Relation Comments Osteoporosis Father No Known Problems Maternal Aunt No Known Problems Maternal Uncle No Known Problems Mother Stent Cardiac Paternal Aunt Cancer Paternal Grandfather Cancer Paternal Grandmother Stent Cardiac Paternal Grandmother Relation Status Comments Father Maternal Aunt Maternal Uncle Mother Paternal Aunt Paternal Grandfather Paternal Grandmother Social History Tobacco Use Types Packs/Day Years Used Date Smoking Tobacco: Every Day Cigarettes Smokeless Tobacco: Never Alcohol Use Standard Drinks/Week Comments Never 0 (1 standard drink = 0.6 oz pur e alcohol) AUDIT-C Answer Date Recorded Frequency of Alcohol Consumption Never 05/14/2020 Average Number of Drinks Not on file 020 Frequency of Binge Drinking Not on file 02/2020 Comments No Sex and Gender Information Value Date Recorded Sex Assigned at Not on file Legal Sex Female 12:10 PM CDT Gender Identity Not on file Sexual Orientation Not on file Last Filed Vital Signs Vital Sign Reading Time Taken Comments Blood Pressure - - Pulse - - Temperature - - Respiratory Rate - - Oxygen Saturation - - Inhaled Oxygen Concentration - - Weight 63 kg (139 lb) 05/23/2020 10:40 AM CDT Height 162.6 cm (5' 4 ) 05/23/2020 10:40 AM CDT Body Mass Index 23.86 05/23/2020 10:40 AM CDT Plan of Treatment Health Maintenance Due Date Last Done Comments Cervical Cancer Screening Pa p Smear (Age 30 to 64) Every 3 Years 1981 Annual Physical 1984 Pneumococcal Vaccine: Pediat rics (0 to 5 Years) and At-Risk Patients (6 to 64 Years) (1 of 2 - PCV) 1987 Hepatitis C 1999 DTaP, Tdap and Td Vaccines ( 1 - Tdap) 2000 Hepatitis B Vaccines (1 of 3 - 19+ 3-dose series) 2000 Cervical Cancer Screening Pa p with HPV Testing (Age 30 to 64) Every 5 Years 2011 Cervical Cancer Screening with HPV 2011 Mammogram Screening 2021 COVID-19 Vaccine ( - 2023-2 5 season) 2024 Influenza Adult (#1) 2024 HPV Vaccines Aged Out No longer eligi ble based on patient's age to complete this topic Meningococcal B Vaccine Aged Out No l onger eligible based on patient's age to complete this topic Meningococcal Vaccine Aged Out No pepe hebert eligible based on patient's age to complete this topic RSV Immunizations Under 20 Months Aged Out No longer eligible based on patient's age to complete this topic Insurance [employer] Care Teams Plate Drying Machine Tender Relationship Specialty Start Date End Date Delbert Abreu MD [address] [place] [address] PCP - General FAMILY PRACTICE 8/5/20
[2024-11-12 10:19] LABS: Basophils Absolute Auto 0.06 K/mm3 (0.00-0.10); Basophils Percent Auto 0.9 % (0.0-1.0); Eosinophils Absolute Auto 0.16 K/mm3 (0.02-0.50); Eosinophils Percent Auto 2.3 % (1.0-6.0); Hemoglobin 10.8 g/dL (12.0-15.0); Immature Granulocyte Absolute 0.03 K/mm3 (0.00-0.00); Immature Granulocyte Percent A 0.4 % (0.0-0.0); Lymphocytes Absolute Auto 1.33 K/mm3 (1.10-4.50); Lymphocytes Percent Auto 18.9 % (18.0-42.0); Mean Corpuscular HGB Conc 31.8 g/dL (32-36); Mean Corpuscular Hemoglobin 29.8 pg (27.0-31.0); Mean Corpuscular Volume 93.7 fL (78.0-102.0); Mean Platelet Volume 9.2 fl (9.2-11.8); Monocytes Absolute Auto 0.91 K/mm3 (0.10-0.90); Monocytes Percent Auto 12.9 % (2.0-11.0); Neutrophils Absolute Auto 4.54 K/mm3 (1.70-7.20); Neutrophils Percent Auto 64.6 % (50.0-70.0); Platelet Count Result 258 K/mm3 (150-420); Red Blood Count 3.63 M/mm3 (4.20-5.40); Red Cell Distribution Width 14.6 % (11.6-14.4)
[2024-11-12 10:35] LABS: Prothrombin Time 11.2 Seconds (9.50-12.1)
[2024-11-12 10:43] LABS: Alanine Aminotransferase 28 U/L (14-59); Albumin Level 4.3 g/dL (3.4-5.0); Alkaline Phosphatase 58 U/L (46-116); Anion Gap 11 mmol/L (4-12); Aspartate Amino Transferase 29 U/L (15-37); Bilirubin,Total 0.6 mg/dL (0.00-1.00); Blood Urea Nitrogen 21 mg/dL (7-18); Calcium 9.1 mg/dL (8.5-10.1); Carbon Dioxide 28 mmol/L (21-32); Chloride 101 mmol/L (98-108); Estimated CRCL calculation 57 ml/min; Estimated Glomerular Filt Rate 48; Glucose 87 mg/dL (70-99); NT Pro B Type Natriuretic Pept 22 pg/mL (0-125); Osmolality Calculated 292 mOsm/kg (285-295); Potassium 3.7 mmol/L (3.5-5.1); Sodium 140 mmol/L (136-145); Thyroid Stimulating Hormone 49.36 uIU/mL (0.36-3.74); Total Protein 7.5 g/dL (6.4-8.2)
--- NOTE | 2024-11-12 10:44 | PC.NURSE ---
PT HAS RETURNED FROM ULTRASOUND AT THIS TIME, CURRENTLY IN RR TO OBTAIN URINE SPECIMEN.
[2024-11-12 10:50] LABS: Troponin I < 4.0 ng/L (0.00-60.4)
[2024-11-12 10:56] LABS: Add Urine Microscopic? NO; Appearance Urine Clear (Clear); Bilirubin Urine Negative (Negative); Blood Urine Trace-intact (Negative); Color Urine Yellow (Yellow); Glucose Urine UA Negative (Negative); Ketones Urine Negative (Negative); Leukocyte Esterase Ur Negative LEU/UL (Negative); Nitrate Urine Negative (Negative); Protein Urine Negative (Negative); Specific Grav Ur 1.025 (1.010-1.020); pH Urine 6.5 (5.0-8.0)
--- OUTSIDE RECORDS SUMMARY | 2024-11-12 11:03 | XMS_ITS | Clinical Summary ---
Author Organization [facility] Address [address] [place] [address]. [place], [place] [address] [place] [address] Care Team Providers Care Accounting Manager Controller Name Role Phone Delbert Abreu MD Primary Care Provider Allergies Active Allergy Reactions Criticality Noted Date [...] complete this topic Insurance [employer] Care Teams Accounting Manager Controller Relationship Specialty Start Date End Date Delbert Abreu MD [address] [place] [address] PCP - General FAMILY PRACTICE 8/5/20
[2024-11-12 11:52] VITALS: BP 109/61; PULSE 91; RESP 20; TEMP 36.6; O2SAT 98
== END 2024-11-12 11:52 | disposition home or self-care (01) ==
PROVIDERS: Emergency Provider Internal Medicine Critical Care Medicine; PCP Family Medicine
DX: R09.89 Other specified symptoms and signs involving the circulatory and respiratory systems (principal); M79.89 Other specified soft tissue disorders; N18.31 Chronic kidney disease, stage 3a; E03.9 Hypothyroidism, unspecified; Z87.891 Personal history of nicotine dependence
CPT/HCPCS: 36415; 71045; 80053; 81003; 83880; 84443; 84484; 85025; 85610; 85730; 93005; 93970; 99284

== ENCOUNTER 2025-01-10 22:03 | Emergency (ER) | payer OTHER, SELFPAY ==
[2025-01-10 22:08] VITALS: BP 120/93; PULSE 87; RESP 18; TEMP 36; O2SAT 100
--- OUTSIDE RECORDS SUMMARY | 2025-01-10 22:08 | XMS_ITS | Clinical Summary ---
Author Organization [facility] Address [address] [place] [address] Care Team Providers Care Rate Manager Name Role Phone Delbert Abreu MD Primary Care Provider [phone] Allergies Active Allergy Reactions Criticality Noted Date [...] Vaccine ( - 2023-2 5 season) 2024 HPV Vaccines Aged Out No longer [...] complete this topic Insurance [employer] Care Teams Rate Manager Relationship Specialty Start Date End Date Delbert Abreu MD [address] [place] [address] PCP - General FAMILY PRACTICE 05/14/20
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
[2025-01-10] MEDS: IBUPROFEN 400 MG TABLET 800 MG PO (22:37)
[2025-01-10] MEDS: AMOXICILLIN/CLAVULANATE K 875-125 MG TAB 1 TABLET PO (22:37)
--- OUTSIDE RECORDS SUMMARY | 2025-01-10 22:42 | XMS_ITS | Clinical Summary ---
Author Organization [facility] Address [address] [place] [address] Care Team Providers Care Package Designer Name Role Phone Delbert Abreu MD Primary Care Provider [phone] Allergies Active Allergy Reactions Criticality Noted Date [...] complete this topic Insurance [employer] Care Teams Package Designer Relationship Specialty Start Date End Date Delbert Abreu MD [address] [place] [address] PCP - General FAMILY PRACTICE 05/14/20
[2025-01-10] MEDS: NEOMYCIN/POLYMYXIN/BACITRACIN OINTMENT PACKET 1 PACKET TOPICAL (22:48)
--- NOTE | 2025-01-10 22:49 | PC.NURSE ---
wound cleansed, applied neomycin as ordered, and bandaid to site.
== END 2025-01-10 23:09 | disposition home or self-care (01) ==
LOC: CHSED 22:40
PROVIDERS: Emergency Provider Emergency Medicine; PCP Family Medicine
DX: L02.416 Cutaneous abscess of left lower limb (principal); E03.9 Hypothyroidism, unspecified; F17.210 Nicotine dependence, cigarettes, uncomplicated
CPT/HCPCS: 99283; A9270

== ENCOUNTER 2025-06-01 20:03 | Emergency (ER) | payer OTHER, SELFPAY ==
[2025-06-01 20:03] VITALS: BP 136/82; PULSE 87; RESP 18; TEMP 36.6; O2SAT 100
--- OUTSIDE RECORDS SUMMARY | 2025-06-01 20:05 | XMS_ITS | Clinical Summary ---
Author Organization [facility] Address [address] [place] [address] Care Team Providers Care Custody Assistant Name Role Phone Delbert Abreu MD Primary Care Provider [phone] Allergies Active Allergy Reactions Criticality Noted Date [...] 10:40 AM CDT Height 162.6 cm (5' 4) 05/23/2020 10:40 AM CDT Body Mass Index 23.86 05/23/2020 10:40 AM CDT Plan of Treatment Health Maintenance Due Date Last Done Comments Cervical Cancer Screening Pa p Smear (Age 30 to 64) Every 3 Years 1981 Annual Physical 1984 Hepatitis C 1999 DTaP, Tdap and Td Vaccines ( 1 - Tdap) 2000 Hepatitis B Vaccines (1 of 3 - 19+ 3-dose series) 2000 Pneumococcal Vaccine: Pediat rics (0 to 5 Years) and At-Risk Patients (6 to 49 Years) (1 of 2 - PCV) 2000 HPV Vaccines (1 - 3-dose SCD M series) 2008 Cervical Cancer Screening Pa p with HPV Testing (Age 30 to 64) Every 5 Years 2011 Cervical Cancer Screening with HPV 2011 Mammogram Screening 2021 COVID-19 Vaccine (2023-2 5 season) 2024 Meningococcal B Vaccine Aged Out No l onger eligible based on patient's age to complete this topic Meningococcal Vaccine Aged Out No pepe hebert eligible based on patient's age to complete this topic RSV Immunizations Under 20 Months Aged Out No longer eligible based on patient's age to complete this topic Insurance [employer] Care Teams Custody Assistant Relationship Specialty Start Date End Date Delbert Abreu MD [address] [place] [address] PCP - General FAMILY PRACTICE 05/14/20
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
[2025-06-01] MEDS: SULFAMETHOXAZOLE/TRIMETHOPRIM 800/160 MG DS TABLET 1 TAB PO (20:14)
[2025-06-01] MEDS: NEOMYCIN/POLYMYXIN/BACITRACIN OINTMENT PACKET 1 PACKET TOPICAL (20:14)
== END 2025-06-01 20:29 | disposition home or self-care (01) ==
PROVIDERS: Emergency Provider Emergency Medicine; PCP Family Medicine
DX: L03.211 Cellulitis of face (principal); E03.9 Hypothyroidism, unspecified; Z87.891 Personal history of nicotine dependence
CPT/HCPCS: 99283; A9270

== ENCOUNTER 2025-07-01 15:38 | Emergency (ER) | payer OTHER, SELFPAY ==
[2025-07-01 15:41] VITALS: BP 93/75; PULSE 75; RESP 16; TEMP 36.9; O2SAT 98
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
--- OUTSIDE RECORDS SUMMARY | 2025-07-01 16:17 | XMS_ITS | Clinical Summary ---
Author Organization [facility] Address [address] [place] [address] Care Team Providers Care Metal Neutralizer Name Role Phone Delbert Abreu MD Primary Care Provider [phone] Allergies Active Allergy Reactions Criticality Noted Date [...] Screening 2021 COVID-19 Vaccine (2023-2 5 season) 2025 Meningococcal B Vaccine Aged Out No l onger eligible based on patient's age to complete this topic Meningococcal Vaccine Aged Out No pepe hebert eligible based on patient's age to complete this topic RSV Immunizations Under 20 Months Aged Out No longer eligible based on patient's age to complete this topic Insurance [employer] Care Teams Metal Neutralizer Relationship Specialty Start Date End Date Delbert Abreu MD [address] [place] [address] PCP - General FAMILY PRACTICE 05/14/20
[2025-07-01 16:23] VITALS: BP 93/75; PULSE 75; RESP 16; TEMP 36.9; O2SAT 98
== END 2025-07-01 16:23 | disposition home or self-care (01) ==
LOC: CHSED 16:13
PROVIDERS: Emergency Provider Family Medicine; PCP Family Medicine
DX: L03.311 Cellulitis of abdominal wall (principal); E03.9 Hypothyroidism, unspecified; F17.210 Nicotine dependence, cigarettes, uncomplicated
CPT/HCPCS: 99283